=== PATIENT | male | born 1995 | race American Indian/Alaskan Native ===

== ENCOUNTER 2019-07-01 09:04 | Emergency (ER) | payer SELFPAY ==
[2019-07-01] MEDS ORDERED: ALBUTEROL 2.5 MG/3 ML NEBU IH ONE (10:05)
[2019-07-01] MEDS ORDERED: IPRATROPIUM 0.02% NEBU 2.5 ML IH ONE (10:05)
--- NOTE | 2019-07-01 10:05 | Emergency Department Report ---
HPI - General Chief Complaint: Upper Respiratory Infection Time Seen by Provider: 07/01/19 09:49 - HPI HPI: Room 43 The patient is a 18-year-old male presenting with a chief complaint of cough and chest pain. The patient states the symptoms began 5 days ago with a cough productive of yellow sputum. Patient also has had rhinorrhea and hot and cold chills. The patient states she's had intermittent chest pain has been sharp in nature. Patient missed occasional wheezing. She states she is uncertain he's had a fever. Patient denies pleurisy. The patient has 2 children at home who are sick with the same symptoms. ED Past Medical Hx - Past Medical History Previous Medical History?: No - Surgical History Past Surgical History?: No - Family History Family history: no significant - Social History Smoking Status: Current Every Day Smoker (08/15 pack per day) Substance Use Type: None - Medications Home Medications: Home Medications Medication Instructions Recorded Confirmed Last Taken Type ALBUTEROL Inhaler (OR & NICU) 2 puff IH QID PRN #8.5 gram 07/01/19 Unknown Rx [ProAir HFA Inhaler] Azithromycin [Zithromax Z-DAVID] 0 mg PO DAILY #6 tab 07/01/19 Unknown Rx Benzonatate [Tessalon Perles] 100 mg PO Q8HR #30 capsule 07/01/19 Unknown Rx Ibuprofen [Motrin 800 MG tab] 800 mg PO Q8HR PRN #20 tablet 07/01/19 Unknown Rx traMADoL [Ultram] 50 mg PO Q6HR PRN #10 tablet 07/01/19 Unknown Rx ED Review of Systems ROS: Stated complaint: CP Other details as noted in HPI Constitutional: fever (?) Eyes: denies: eye pain ENT: congestion Respiratory: cough, shortness of breath Cardiovascular: chest pain Endocrine: no symptoms reported Gastrointestinal: denies: nausea, vomiting Genitourinary: denies: dysuria Musculoskeletal: back pain Neurological: denies: headache Physical Exam - Physical Exam Vital Signs: Vital Signs 07/01/19 09:10 Temperature 97.5 F L Pulse Rate 64 Respiratory 16 Rate Blood Pressure 121/78 O2 Sat by Pulse 98 Oximetry Physical Exam: GENERAL: The patient is well-developed well-nourished male sitting on stretcher not appearing to be in acute distress. [] HEENT: Normocephalic. Atraumatic. Extraocular motions are intact. Patient has moist mucous membranes. NECK: Supple. Trachea midline CHEST/LUNGS: Faint expiratory wheezing bilateral. There is no respiratory distress noted. HEART/CARDIOVASCULAR: Regular. There is no tachycardia. There is no gallop rub or murmur. ABDOMEN: Abdomen is soft, nontender. Patient has normal bowel sounds. There is no abdominal distention. SKIN: There is no rash. There is no edema. There is no diaphoresis. NEURO: The patient is awake, alert, and oriented. The patient is cooperative. The patient has normal speech MUSCULOSKELETAL: There is no evidence of acute injury. ED Course Vital Signs 07/01/19 09:10 Temperature 97.5 F L Pulse Rate 64 Respiratory 16 Rate Blood Pressure 121/78 O2 Sat by Pulse 98 Oximetry ED Medical Decision Making - Lab Data Result diagrams: 07/01/19 10:01 07/01/19 10:01 Laboratory Tests 07/01/19 07/01/19 07/01/19 10:01 10:01 10:01 WBC 7.7 RBC 4.66 Hgb 13.9 Hct 41.4 MCV 89 MCH 30 MCHC 34 RDW 14.0 Plt Count 211 Lymph % (Auto) 34.3 [place] % (Auto) 9.0 H Eos % (Auto) 4.3 Baso % (Auto) 0.9 Lymph # 2.7 [place] # 0.7 Eos # 0.3 Baso # 0.1 Seg Neutrophils % 51.5 Seg Neutrophils # 4.0 D-Dimer < 135.00 Sodium 140 Potassium 4.0 Chloride 104.2 Carbon Dioxide 21 L Anion Gap 19 BUN 6 L Creatinine 0.8 Estimated GFR > 60 BUN/Creatinine Ratio 8 Glucose 91 Calcium 9.0 Total Creatine Kinase 200 H CK-MB (CK-2) 1.5 CK-MB (CK-2) Rel Index 0.7 Troponin T < 0.010 NT-Pro-B Natriuret Pep 100.7 Influenza A (Rapid) Influenza B (Rapid) 07/01/19 10:09 WBC RBC Hgb Hct MCV MCH MCHC RDW Plt Count Lymph % (Auto) [place] % (Auto) Eos % (Auto) Baso % (Auto) Lymph # [place] # Eos # Baso # Seg Neutrophils % Seg Neutrophils # D-Dimer Sodium Potassium Chloride Carbon Dioxide Anion Gap BUN Creatinine Estimated GFR BUN/Creatinine Ratio Glucose Calcium Total Creatine Kinase CK-MB (CK-2) CK-MB (CK-2) Rel Index Troponin T NT-Pro-B Natriuret Pep Influenza A (Rapid) Negative Influenza B (Rapid) Negative - EKG Data -: EKG Interpreted by Me EKG shows normal: sinus rhythm Rate: normal - EKG Data When compared to previous EKG there are: previous EKG unavailable Interpretation: nonspecific ST-T wave binta (T-wave inversions in leads 3 and aVF) - Radiology Data Radiology results: report reviewed (chest x-ray), image reviewed (chest x-ray) interpreted by me: Chest x-ray-no focal infiltrates, no pneumothorax [facility] [address] [place] [address] XRay Report Signed Patient: ROSAURA FAUST MR#: [id number] : 1995 Acct:[id number] Age/Sex: 24 / M ADM Date: 07/01/19 Loc: ED Attending Dr: Ordering Physician: MARIAM TIAN MD Date of Service: 07/01/19 Procedure(s): XR chest routine 2V Accession Number(s): [id number] cc: MARIAM TIAN MD Fluoro Time In Minutes: CHEST 2 VIEWS INDICATION / CLINICAL INFORMATION: MAIN: cough, chest pain FOR A WEEK. COMPARISON: None available. FINDINGS: SUPPORT DEVICES: None. HEART / MEDIASTINUM: No significant abnormality. LUNGS / PLEURA: No significant pulmonary or pleural abnormality. .No pneumoth orax. ADDITIONAL FINDINGS: No significant additional findings. IMPRESSION: 1. No acute findings. Signer Name: Lamont Soler MD Signed: 07/01/2019 11:52 AM Workstation Name: [id number] Transcribed By: Dictated By: Lamont Soler MD Electronically Authenticated By: Lamont Soler MD Signed Date/Time: 07/01/19 1152 DD/ 1151 TD/TT: - Differential Diagnosis URI, bronchitis, pneumonia, ACS, PE, pericarditis Critical care attestation.: If time is entered above; I have spent that time in minutes in the direct care of this critically ill patient, excluding procedure time. ED Disposition Clinical Impression: Acute bronchitis, Costochondritis Disposition: DC-01 TO HOME OR SELFCARE Is pt being admited?: No Does the pt Need Aspirin: No Condition: Stable Instructions: Acute Bronchitis (ED) Prescriptions: Ibuprofen [Motrin 800 MG tab] 800 mg PO Q8HR PRN #20 tablet PRN Reason: Pain, Moderate (4-6) ALBUTEROL Inhaler (OR & NICU) [ProAir HFA Inhaler] 2 puff IH QID PRN #8.5 gram PRN Reason: Shortness Of Breath Benzonatate [Tessalon Perles] 100 mg PO Q8HR #30 capsule traMADoL [Ultram] 50 mg PO Q6HR PRN #10 tablet PRN Reason: Pain Azithromycin [Zithromax Z-DAVID] 0 mg PO DAILY #6 tab Referrals: [facility] [Outside] - 3-5 Days Time of Disposition: 12:12
[2019-07-01 10:22] LABS: Basophils # (Auto) 0.1 K/mm3 (0.0-0.1); Basophils % (Auto) 0.9 % (0.0-1.8); Eosinophils # (Auto) 0.3 K/mm3 (0.0-0.4); Eosinophils % (Auto) 4.3 % (0.0-4.3); Hematocrit 41.4 % (35.5-45.6); Hemoglobin 13.9 gm/dl (11.8-15.2); Lymphocytes # (Auto) 2.7 K/mm3 (1.2-5.4); Lymphocytes % (Auto) 34.3 % (13.4-35.0); Mean Corpuscular HGB Conc 34 % (32-34); Mean Corpuscular Volume 89 fl (84-94); Monocytes # (Auto) 0.7 K/mm3 (0.0-0.8); Platelet Count 211 K/mm3 (140-440); Red Blood Count 4.66 M/mm3 (3.65-5.03)
[2019-07-01 10:40] LABS: BUN/Creatinine Ratio 8; Blood Urea Nitrogen 6 mg/dL (9-20); Hemolysis Index 11
[2019-07-01 10:42] LABS: Creatine Kinase MB 1.5 ng/mL (0.0-4.0)
--- NOTE | 2019-07-01 11:56 | XRay Report ---
CHEST 2 VIEWS INDICATION / CLINICAL INFORMATION: MAIN: cough, chest pain FOR A WEEK. COMPARISON: None available. FINDINGS: SUPPORT DEVICES: None. HEART / MEDIASTINUM: No significant abnormality. LUNGS / PLEURA: No significant pulmonary or pleural abnormality. .No pneumothorax. ADDITIONAL FINDINGS: No significant additional findings. IMPRESSION: 1. No acute findings. Signer Name: Lamont Soler MD Signed: 07/01/2019 11:52 AM Workstation Name: [id number]
[2019-07-01 12:05] VITALS: BP 122/69
== END 2019-07-01 12:25 | disposition home or self-care (01) ==
LOC: ED 09:04
DX: J20.9 Acute bronchitis, unspecified (principal); M94.0 Chondrocostal junction syndrome [Tietze]; F17.200 Nicotine dependence, unspecified, uncomplicated
CPT/HCPCS: 36415; 71046; 80048; 82550; 82553; 83880; 84484; 85025; 85379; 87400; 93005; 93010; 94640; 94644

== ENCOUNTER 2019-08-03 12:29 | Emergency (ER) | payer SELFPAY ==
[2019-08-03 13:09] VITALS: BP 120/79
--- NOTE | 2019-08-03 13:16 | Event Note ---
ED Screening Note Date of service: 08/03/19 Time: 13:14 ED Screening Note: 24 y o male presents with dental pain with drinking cold drinks\states he feels like a hole in his tooth he denies trauma or fever or any swelling This initial assessment/diagnostic orders/clinical plan/treatment(s) is/are subject to change based on patients health status, clinical progression and re- assessment by fellow clinical providers in the ED. Further treatment and workup at subsequent clinical providers discretion. Patient/guardian urged not to elope from the ED as their condition may be serious if not clinically assessed and managed. Initial orders include: Pt presents with a non-medical emergency Examination is normal, Vital sign are stable Pt given information for clinics to follow up with dentist for further treatment and evaluation Also discussed strict return precautions in detail with pt who verbalized understanding
== END 2019-08-03 14:16 | disposition left against medical advice (07) ==
LOC: ED 12:29
DX: K08.89 Other specified disorders of teeth and supporting structures (principal); Z53.21 Procedure and treatment not carried out due to patient leaving prior to being seen by health care provider

== ENCOUNTER 2019-10-17 14:05 | Emergency (ER) | payer SELFPAY ==
[2019-10-17 14:12] VITALS: BP 139/73
--- NOTE | 2019-10-17 14:38 | Emergency Department Report ---
Upper Respiratory HPI - HPI Chief Complaint: Upper Respiratory Infection Stated Complaint: COUGH/CP/SNEEZING/RUNNY NOSE Time Seen by Provider: 10/17/19 14:28 Duration: 1 week URI Symptoms: Rhinorrhea: Yes, Sore Throat: No, Ear Pain: No, Cough: Yes, Shortness of Breath: No, Sick Contacts: No, Unable to Take Fluids: No, Urine Output Abnormal: No, Listless Behavior: No Other History: This is a 24-year-old male nontoxic well in [facility] with no signs of distress presents with dry nonproductive cough x1 week. Patient denies any chest pain, shortness of breathe, fever, chills, nausea, vomiting, headache, stiff neck, abdominal pain, numbness or tingling. Patient denies any recent travels, long car rides, or recent hospital stays. Denies any allergies or significant PMH. - Home Meds and Allergies Home Medications: Previous Rx's Medication Instructions Recorded Last Taken Type Albuterol INH(or & Nicu Only) 2 puff IH QID PRN #8.5 gram 07/01/19 Unknown Rx [ProAir HFA Inhaler] Azithromycin [Zithromax Z-DAVID] 0 mg PO DAILY #6 tab 07/01/19 Unknown Rx Benzonatate [Tessalon Perles] 100 mg PO Q8HR #30 capsule 07/01/19 Unknown Rx Ibuprofen [Motrin 800 MG tab] 800 mg PO Q8HR PRN #20 tablet 07/01/19 Unknown Rx traMADoL [Ultram] 50 mg PO Q6HR PRN #10 tablet 07/01/19 Unknown Rx Allergies/Adverse Reactions: Allergies Allergy/AdvReac Type Severity Reaction Status Date / Time No Known Allergies Allergy Unverified 07/01/19 09:07 ED Review of Systems ROS: Stated complaint: COUGH/CP/SNEEZING/RUNNY NOSE Other details as noted in HPI Constitutional: denies: chills, fever Eyes: denies: eye pain, eye discharge, vision change ENT: denies: ear pain, throat pain Respiratory: cough. denies: shortness of breath, wheezing Cardiovascular: denies: chest pain, palpitations Endocrine: no symptoms reported Gastrointestinal: denies: abdominal pain, nausea, diarrhea Genitourinary: denies: urgency, dysuria Musculoskeletal: denies: back pain, joint swelling, arthralgia Skin: denies: rash, lesions Neurological: denies: headache, weakness, paresthesias Psychiatric: denies: anxiety, depression Hematological/Lymphatic: denies: easy bleeding, easy bruising ED Past Medical Hx - Past Medical History Previous Medical History?: No - Surgical History Past Surgical History?: Yes Additional Surgical History: Tonsilectomy - Social History Smoking Status: Current Every Day Smoker Substance Use Type: None - Medications Home Medications: Home Medications Medication Instructions Recorded Confirmed Last Taken Type Albuterol INH(or & Nicu Only) 2 puff IH QID PRN #8.5 gram 07/01/19 Unknown Rx [ProAir HFA Inhaler] Azithromycin [Zithromax Z-DAVID] 0 mg PO DAILY #6 tab 07/01/19 Unknown Rx Benzonatate [Tessalon Perles] 100 mg PO Q8HR #30 capsule 07/01/19 Unknown Rx Ibuprofen [Motrin 800 MG tab] 800 mg PO Q8HR PRN #20 tablet 07/01/19 Unknown Rx traMADoL [Ultram] 50 mg PO Q6HR PRN #10 tablet 07/01/19 Unknown Rx ED Bronchiolitis Physical Exam - Exam General: Vital signs noted. No distress. Alert and acting appropriately. HEENT: No Pharyngeal Erythema, No Conjuctival Injection, No Dry Mucous Membranes, No Rhinorrhea Ear: Neither TM Bulge, Neither TM Erythema, Neither EAC Discharge Neck: No Adenopathy, No Rigidity Lungs: Yes Clear Lung Sounds, Yes Good Air Exchange, No Wheezes, No Stridor, No Cough, No Nasal Flaring, No Retractions, No Use of Accessory Muscles Heart: Yes Regular, No Murmur Abdomen: Yes Normal Bowel Sounds, No Tenderness, No Peritoneal Signs Skin: No Rash, No Eczema Neurologic: Alert and oriented, no deficits. Musculoskeletal: Unremarkable. ED Physical Exam - General Limitations: No Limitations ED Course Vital Signs 10/17/19 14:11 Temperature 97.9 F Pulse Rate 81 Respiratory 18 Rate Blood Pressure 139/73 O2 Sat by Pulse 98 Oximetry - Reevaluation(s) Reevaluation #1: 10/17/19 14:37 Patient is speaking in full sentences with no signs of distress noted. ED Medical Decision Making - Medical Decision Making 24-year-old male that presents with viral bronchitis like symptoms. Patient is stable and was examined by me. Patient does not meet COVID-19 precautions but patient was educated and instructed to self quaratine if symptoms do occur. Patient was educated on OTC suppurative care and medications. Vital signs are stable. Patient was instructed to Follow-up with a primary care doctor in 3-5 days or if symptoms worsen and continue return to emergency room as soon as possible. At time of discharge, the patient does not seem toxic or ill in appearance. No acute signs of distress noted. Patient agrees to discharge treatment plan of care. No further questions noted by the patient. Critical care attestation.: If time is entered above; I have spent that time in minutes in the direct care of this critically ill patient, excluding procedure time. ED Disposition Clinical Impression: Viral bronchitis Disposition: MED SCREENING EXAM-LEFT Is pt being admited?: No Does the pt Need Aspirin: No Condition: Stable Instructions: Acute Bronchitis (ED) Additional Instructions: Follow-up with a primary care doctor in 3-5 days or if symptoms worsen and continue return to emergency room as soon as possible. Referrals: PRIMARY MD INDIRA [Referring] - 3-5 Days TISHA VU MD [Staff Physician] - 3-5 Days [facility] [Outside] - 3-5 Days
== END 2019-10-17 15:15 | disposition left against medical advice (07) ==
LOC: ED 14:05
DX: J20.8 Acute bronchitis due to other specified organisms (principal); R06.7 Sneezing; F17.200 Nicotine dependence, unspecified, uncomplicated; Z79.899 Other long term (current) drug therapy; Z90.49 Acquired absence of other specified parts of digestive tract
CPT/HCPCS: 99282

== ENCOUNTER 2021-04-25 13:13 | Emergency (ER) | payer SELFPAY ==
[2021-04-25] MEDS ORDERED: HYDROcodone/ACETAMINOPHEN 7.5-325MG TAB PO ONE (13:40)
[2021-04-25] MEDS ORDERED: IBUPROFEN 800 MG TAB PO ONE (13:40)
--- NOTE | 2021-04-25 13:44 | Emergency Department Report ---
<SADIE JHAVERI S - Last Filed: 04/25/21 15:41> ED Lower Extremity HPI - General Chief Complaint: Extremity Injury, Lower Stated Complaint: LT LEG PAINS Time Seen by Provider: 04/25/21 13:22 - Related Data Previous Rx's Medication Instructions Recorded Last Taken Type Albuterol Mdi (or & Nicu Only) 2 puff IH QID PRN #8.5 gram 07/01/19 Unknown Rx [ProAir HFA Inhaler] Azithromycin [Zithromax Z-DAVID] 0 mg PO DAILY #6 tab 07/01/19 Unknown Rx Benzonatate [Tessalon Perles] 100 mg PO Q8HR #30 capsule 07/01/19 Unknown Rx Ibuprofen [Motrin 800 MG tab] 800 mg PO Q8HR PRN #20 tablet 07/01/19 Unknown Rx traMADoL [Ultram] 50 mg PO Q6HR PRN #10 tablet 07/01/19 Unknown Rx Ibuprofen [Motrin 800 MG tab] 800 mg PO Q8HR PRN #30 tablet 04/25/21 Unknown Rx Oxycodone HCl/Acetaminophen 1 each PO Q6HR PRN #15 tablet 04/25/21 Unknown Rx [Percocet 7.5/325 mg] Allergies Allergy/AdvReac Type Severity Reaction Status Date / Time No Known Allergies Allergy Unverified 07/01/19 09:07 ED Past Medical Hx - Medications Home Medications: Home Medications Medication Instructions Recorded Confirmed Last Taken Type Albuterol Mdi (or & Nicu Only) 2 puff IH QID PRN #8.5 gram 07/01/19 Unknown Rx [ProAir HFA Inhaler] Azithromycin [Zithromax Z-DAVID] 0 mg PO DAILY #6 tab 07/01/19 Unknown Rx Benzonatate [Tessalon Perles] 100 mg PO Q8HR #30 capsule 07/01/19 Unknown Rx Ibuprofen [Motrin 800 MG tab] 800 mg PO Q8HR PRN #20 tablet 07/01/19 Unknown Rx traMADoL [Ultram] 50 mg PO Q6HR PRN #10 tablet 07/01/19 Unknown Rx Ibuprofen [Motrin 800 MG tab] 800 mg PO Q8HR PRN #30 tablet 04/25/21 Unknown Rx Oxycodone HCl/Acetaminophen 1 each PO Q6HR PRN #15 tablet 04/25/21 Unknown Rx [Percocet 7.5/325 mg] ED Lower Extremity MDM - Medical Decision Making I saw the patient in conjunction with RENITA Lebron. The patient has left knee pain and swelling of the knee and lateral proximal calf. X-ray shows mild displaced fracture of the anterior proximal tibia and a medial femoral condyle impaction defect. There is some visible and palpable swelling to that proximal left lateral calf, but the medial portion of the calf, as well as the distal calf, is soft. There is a palpable left +2/4 dorsalis pedis pulse and capillary refill less than 2 seconds. The patient is able to dorsi and plantarflex his left foot without any significant pain. The patient's discomfort appears localized to the area of his fracture. The swelling does not appear consistent with a compartment syndrome. He will be placed in a splint for immobilization and placed on crutches for nonweightbearing. He will be given crutches for nonweightbearing and will be given multiple outpatient referrals for orthopedist. ED Disposition Clinical Impression: Knee fracture, left Disposition: HOME / SELF CARE / HOMELESS Condition: Stable Instructions: Nondisplaced Tibial Plateau Fracture Prescriptions: Ibuprofen [Motrin 800 MG tab] 800 mg PO Q8HR PRN #30 tablet PRN Reason: Pain , Severe (7-10) Oxycodone HCl/Acetaminophen [Percocet 7.5/325 mg] 1 each PO Q6HR PRN #15 tablet PRN Reason: Pain Referrals: EMELYN CAICEDO MD [Staff Physician] - 3-5 Days VIDYA ESQUIVEL MD [Staff Physician] - 3-5 Days Forms: Work/School Release Form(ED) <NINO LEBRON - Last Filed: 04/25/21 18:39> ED Lower Extremity HPI - General Source: patient Mode of arrival: Wheelchair Limitations: No Limitations - History of Present Illness Initial Comments: The patient was evaluated in the emergency department for symptoms described in the history of present illness. He/she was evaluated in the context of the global COVID-19 pandemic, which necessitated consideration that the patient might be at risk for infection with the virus that causes COVID-19. Institutional protocols and algorithms that pertain to the evaluation of patients at risk for COVID-19 are in a state of rapid change based on information released by regulatory bodies including the CDC and federal and state organizations. These policies and algorithms were followed during the patient's care in the emergency department. Please note that these policies, procedures and recommendations changed on a rapid basis. 26-year-old morbid obese -Chinese male presents to the emergency room complaining of left knee pain and swelling. Patient reports the pain is a 10 out of 10. Patient states he was jumping on a trampoline last night when he injured it. Patient reports that put ice on it and took pain medication last night. Patient states at the time he felt something pop. Patient states nothing makes it better and what makes it worse is walking bearing weight touching it. Patient states he had an injury as a child but no recent injuries. Patient denies any past medical history currently takes no medications on a daily basis has no primary care provider no known drug allergies. MD Complaint: knee injury -: Last night Injury: Knee: Left Type of Injury: unknown Place: home Severity scale (0 -10): 10 Improves With: nothing Worsens With: weight bearing, movement, palpation Context: jumping Associated Symptoms: snap/pop sensation, swelling, unable to bear weight ED Review of Systems ROS: Stated complaint: LT LEG PAINS Other details as noted in HPI Comment: All other systems reviewed and negative ED Past Medical Hx - Surgical History Additional Surgical History: Tonsilectomy - Social History Smoking Status: Current Every Day Smoker Substance Use Type: None ED Physical Exam - General Limitations: No Limitations General appearance: alert, in no apparent distress - Head Head exam: Present: atraumatic, normocephalic - Eye Eye exam: Present: normal appearance - ENT ENT exam: Present: normal external ear exam - Neck Neck exam: Present: normal inspection, full ROM - Respiratory Respiratory exam: Absent: accessory muscle use - Cardiovascular Cardiovascular Exam: Present: regular rate - Expanded Lower Extremity Exam Left Knee exam: Present: full ROM, tenderness, swelling Lower Leg exam: Present: full ROM, tenderness, swelling Ankle exam: Present: normal inspection, full ROM Neuro vascular tendon exam: Present: no vascular compromise Gait: Positive: not tested/not observed - Back Exam Back exam: Present: normal inspection - Neurological Exam Neurological exam: Present: alert, oriented X3 - Psychiatric Psychiatric exam: Present: normal affect, normal mood - Skin Skin exam: Present: warm, dry, intact, normal color. Absent: rash ED Course Vital Signs 04/25/21 04/25/21 13:32 14:11 Temperature 98.6 F Pulse Rate 95 H 98 H Respiratory 12 16 Rate Blood Pressure 137/81 Blood Pressure 149/72 [Right] O2 Sat by Pulse 100 98 Oximetry - Reevaluation(s) Reevaluation #1: 04/25/21 18:39 Reassessed patient in splint. Capillary refills less than 2 able to get 2 fingers under splint. ED Lower Extremity MDM - Medical Decision Making 26-year-old morbid obese -Chinese male presents to the emergency room complaining of left knee pain and swelling. Patient reports the pain is a 10 out of 10. Patient states he was jumping on a trampoline last night when he injured it. Patient reports that put ice on it and took pain medication last night. Patient states at the time he felt something pop. Patient states nothing makes it better and what makes it worse is walking bearing weight touching it. Patient states he had an injury as a child but no recent injuries. Patient denies any past medical history currently takes no medications on a daily basis has no primary care provider no known drug allergies. X-ray of left knee has been ordered [place] and ibuprofen for pain management has been ordered. X-ray shows mild displaced fracture of the anterior proximal tibia and medial femoral condyle impaction defect. Discussed with patient we will place him in an OCL splint for immobilization and crutches. Discussed with patient that this does not appear to be a surgical case at this time. Patient is to follow-up with an orthopedic provider next week. Patient verbalized understanding. P atient will be discharged on Percocet ibuprofen crutches and instructions for nonweightbearing. Critical care attestation.: If time is entered above; I have spent that time in minutes in the direct care of this critically ill patient, excluding procedure time. ED Disposition Is pt being admited?: No Does the pt Need Aspirin: No
[2021-04-25 14:14] VITALS: BP 137/81
--- NOTE | 2021-04-25 14:26 | XRay Report ---
LEFT KNEE 3 VIEW(S) INDICATION / CLINICAL INFORMATION: Knee trauma with swelling and pain COMPARISON: None available. FINDINGS: BONES / JOINT(S): Mild displaced fracture of the anterior proximal tibia possibly involving the anter ior medial tibial plateau. There is impaction defect in the anterior medial femoral condyle. SOFT TISSUES: Moderate soft tissue swelling of the lateral knee. ADDITIONAL FINDINGS: None. IMPRESSION: 1. Mildly displaced fracture of the anterior proximal tibia with medial femoral condyle impaction def ormity. CT left knee without contrast would be helpful for further characterization. Signer Name: Karen Jean MD Signed: 04/25/2021 2:21 PM Workstation Name: [id number]
== END 2021-04-25 18:30 | disposition home or self-care (01) ==
LOC: ED 13:13
DX: S82.092A Other fracture of left patella, initial encounter for closed fracture (principal); X50.1XXA Overexertion from prolonged static or awkward postures, initial encounter; Y93.89 Activity, other specified; Y92.89 Other specified places as the place of occurrence of the external cause; Y99.8 Other external cause status
CPT/HCPCS: 99283